=== PATIENT | female | born 2000 | race African-American/Black ===

== ENCOUNTER 2018-06-09 18:46 | Emergency (ER) | payer SELFPAY ==
[~2018-06-09] VITALS: Ht 172.7 cm; Wt 79.4 kg
[2018-06-09] MEDS ORDERED: AZITHROMYCIN 250 MG TAB PO ONE (19:15)
[2018-06-09] MEDS ORDERED: CEFTRIAXONE SOD 1 GM VIAL IM ONE (19:15)
[2018-06-09] MEDS ORDERED: METRONIDAZOLE 500 MG TAB PO ONE (19:15)
[2018-06-09] MEDS ORDERED: ONDANSETRON HCL 4 MG ORAL DISINTEGRATING TAB PO ONE (19:15)
[2018-06-09] MEDS ORDERED: METRONIDAZOLE 500 MG TAB ONE (23:02)
[2018-06-09] MEDS ORDERED: AZITHROMYCIN 250 MG TAB ONE (23:02)
[2018-06-09] MEDS ORDERED: CEFTRIAXONE SOD 1 GM VIAL ONE (23:03)
[2018-06-09] MEDS ORDERED: LIDOCAINE HCL 1% LOCAL INJ 20 ML VIAL ONE (23:03)
== END 2018-06-10 00:12 | disposition home or self-care (01) ==
LOC: ER 18:46
DX: N89.8 Other specified noninflammatory disorders of vagina (principal); A64 Unspecified sexually transmitted disease
CPT/HCPCS: 81025; 96372; 99283; J0696; J2001

== ENCOUNTER 2023-04-01 21:38 | Emergency (ER) | payer SELFPAY ==
[~2023-04-01] VITALS: Ht 172.7 cm; Wt 79.4 kg
[2023-04-01] MEDS ORDERED: SODIUM CHLORIDE 0.9% 1000ML 1,000 ML IV ONE (23:00)
[2023-04-01 23:22] LABS: BASOPHILS % 0.3 % (0.0-1.0); EOSINOPHILS # (AUTO) 0.1 (0.0-0.4); EOSINOPHILS % 1.1 % (0.0-6.0); HEMATOCRIT 36.6 % (34.2-44.1); HEMOGLOBIN 11.7 g/dL (12.0-16.0); LYMPHOCYTES # (AUTO) 1.9 (1.0-3.2); LYMPHOCYTES % 29.3 % (18.0-39.1); MEAN CORPUSCULAR HEMOGLOBIN 29.6 pg (28-32); MEAN CORPUSCULAR VOLUME 92.7 fL (81-99); MONOCYTES # (AUTO) 0.6 (0.2-0.8); NEUTROPHILS # (AUTO) 3.9 (2.1-6.9); PLATELET COUNT 221 x10e3/uL (140-360); RED BLOOD COUNT 3.95 x10e6/uL (3.6-5.1); RED CELL DISTRIBUTION WIDTH 12.9 % (11.7-14.4)
[2023-04-01 23:38] LABS: ALBUMIN/GLOBULIN RATIO 1.1 (0.8-2.0); ANION GAP 11.5 mmol/L (8-16); CALCIUM 9.5 mg/dL (8.4-10.2); CREATININE, SERUM 1.01 mg/dL (0.57-1.11); POTASSIUM 3.5 mmol/L (3.5-5.1)
[2023-04-01] MEDS ORDERED: IOPAMIDOL 370 MG/ML 100 ML INFUS..BTL INJ ONE (23:49)
[2023-04-01] MEDS ORDERED: SODIUM CHLORIDE 0.9% 100 ML ONE (23:49)
[2023-04-02 00:38] LABS: CLARITY,URINE CLOUDY (CLEAR); COLOR,URINE AMBER (YELLOW); KETONES,URINE TRACE (NEGATIVE); LEUKOCYTE ESTERASE ,URINE NEGATIVE (NEGATIVE); NITRITE,URINE NEGATIVE (NEGATIVE); PROTEIN,URINE DIPSTICK 2+ (NEGATIVE); URINE UROBILINOGEN 0.2 mg/dL (0.2 - 1)
[2023-04-02 01:04] LABS: BACTERIA,URINE MANY /HPF; EPITHELIAL CELLS,URINE FEW /LPF; RBC,URINE >50 /HPF (0-5)
[2023-04-02] MEDS ORDERED: SODIUM CHLORIDE 0.9% 1000ML 1,000 ML IV ONE (01:30)
[2023-04-02 02:19] VITALS: BP 105/69; PULSE 60; RESP 18; O2SAT 100
== END 2023-04-02 02:21 | disposition home or self-care (01) ==
LOC: ER 21:45
DX: R51.9 Headache, unspecified (principal); T67.5XXA Heat exhaustion, unspecified, initial encounter; E86.0 Dehydration; R94.31 Abnormal electrocardiogram [ECG] [EKG]
CPT/HCPCS: 36415; 70496; 70498; 80053; 81001; 82550; 82553; 84484; 84702; 85025; 93005; 99284; J7030 ×2; J7050; Q9967